=== PATIENT | male | born 1950 | race Caucasian/White ===

== ENCOUNTER 2022-09-01 06:00 | Day surgery (SDC) | payer MEDICARE ==
[2022-09-01] MEDS ORDERED: fentaNYL 100 MCG/2 ML SDV ONE (07:31)
[2022-09-01] MEDS ORDERED: Propofol 200 MG/20 ML SDV ONE ×2 (07:31→11:41)
[2022-09-01] MEDS ORDERED: Lactated Ringers 1,000 ML IV ONE (11:15)
[2022-09-01] MEDS ORDERED: Lidocaine 2% 5 ML SDV ONE (11:15)
== END 2022-09-01 12:25 ==
LOC: MW.SDS 06:00
PROVIDERS: ATTEND Surgery
DX: Z12.11 Encounter for screening for malignant neoplasm of colon (principal); D12.5 Benign neoplasm of sigmoid colon; D12.3 Benign neoplasm of transverse colon; E66.9 Obesity, unspecified; Z86.010 Personal history of colon polyps; Z79.899 Other long term (current) drug therapy; Z90.49 Acquired absence of other specified parts of digestive tract; Z98.890 Other specified postprocedural states; Z68.37 Body mass index [BMI] 37.0-37.9, adult
CPT/HCPCS: 45380; J2704; J3010; J7120